=== PATIENT | male | born 1955 | race Asian ===

== ENCOUNTER → 2017-01-14 | Outpatient (CLI) | payer MEDICAID ==
[~2017-01-14] MED LIST: ASPI-515 PO; ASPI-621 PO; ATEN25TA PO; ATOR10TA9 PO; CENTRUM PO; CHOL10003 PO; GABA100C PO; GABA300C10 PO; GLIM2TAB2 PO; ISOS30TA8 PO; LOSA25TA5 PO; MAGN84TA6 PO; MELOXICAM PO; METF10002 PO; METH750T2 PO; OMEP-110 PO; TICA90TA PO; TRAM50TA2 PO
== END | disposition home or self-care (01) ==
LOC: RAD 14:27
PROVIDERS: ATTEND Otolaryngology
DX: Z02.9 Encounter for administrative examinations, unspecified (principal)

== ENCOUNTER → 2017-02-25 | Outpatient (CLI) | payer MEDICAID | END | disposition home or self-care (01) | LOC: RAD 14:21 | PROVIDERS: ATTEND Otolaryngology | DX: H90.3 Sensorineural hearing loss, bilateral (principal); R42 Dizziness and giddiness | CPT/HCPCS: 70551 ==

== ENCOUNTER → 2018-01-17 | Outpatient (CLI) | payer MEDICAID ==
[~2018-01-17] MED LIST changes: +OMNIPAQUE 350 MG/ML, 100ML BOTTLE ONE
== END ==
LOC: CFH 13:10
PROVIDERS: ATTEND Internal Medicine
DX: K40.90 Unilateral inguinal hernia, without obstruction or gangrene, not specified as recurrent (principal); K75.3 Granulomatous hepatitis, not elsewhere classified
CPT/HCPCS: 74177; 82565; Q9967

== ENCOUNTER → 2019-01-05 | Outpatient (CLI) | payer MEDICAID ==
[~2019-01-05] MED LIST changes: -ASPI-621 PO; +ASPI81TA45 PO; +LOSA25TA25 PO; -LOSA25TA5 PO; -OMNIPAQUE 350 MG/ML, 100ML BOTTLE ONE
== END | disposition home or self-care (01) ==
LOC: RAD 10:54
PROVIDERS: ATTEND Otolaryngology
DX: H90.3 Sensorineural hearing loss, bilateral (principal)
CPT/HCPCS: 70480

== ENCOUNTER → 2020-08-07 | Outpatient (CLI) | payer MEDICARE, MEDICAID ==
[~2020-08-07] MED LIST changes: -GLIM2TAB2 PO; +GLIM2TAB7 PO; +REGADENOSON 0.4 MG/5 ML SYRINGE ONE
[2020-08-07 09:52] LABS: ALBUMIN 4.1 g/dL (3.4-5.0); ANION GAP 8 mmol/L (5-15); CALCIUM 8.7 mg/dL (8.5-10.1); CHLORIDE 101 mmol/L (98-107)
[2020-08-07 09:56] LABS: ALANINE AMINOTRANSFERASE 44 U/L (12-78); ALKALINE PHOSPHATASE 102 U/L (45-117); BILIRUBIN,TOTAL 0.9 mg/dL (0.2-1.0); CHOL/HDL RATIO 3.6; CHOLESTEROL, TOTAL 121 mg/dL (140-239); CREATININE 0.79 mg/dL (0.7-1.3); HDL CHOL % 28 % (26-37); HDL CHOLESTEROL (DIRECT) 34 mg/dL (40-60); LDL CHOLESTEROL,CALCULATED 60 mg/dL (54-169); LDL/HDL RATIO 1.8 (0.5-3.0); TOTAL PROTEIN 7.4 g/dL (6.4-8.2); TRIGLYCERIDES 133 mg/dL (50-200); VLDL CHOLESTEROL 27 mg/dL (0-25)
== END | disposition home or self-care (01) ==
LOC: CFH 08:24
PROVIDERS: ATTEND Internal Medicine Cardiovascular Disease
DX: I25.9 Chronic ischemic heart disease, unspecified (principal); I25.10 Atherosclerotic heart disease of native coronary artery without angina pectoris; E78.2 Mixed hyperlipidemia; E87.1 Hypo-osmolality and hyponatremia; R07.9 Chest pain, unspecified; R06.02 Shortness of breath; R42 Dizziness and giddiness
CPT/HCPCS: 36415; 78452; 80053; 80061; 93017; A9502; J2785

== ENCOUNTER 2020-12-02 08:17 | Day surgery (SDC) | payer MEDICARE, MEDICAID ==
[~2020-12-02] VITALS: Ht 177.8 cm; Wt 90.0 kg
[~2020-12-02 08:17] MED LIST changes: -ASPI-515 PO; +ASPI-963 PO; +METH-640 PO; -METH750T2 PO; -REGADENOSON 0.4 MG/5 ML SYRINGE ONE
[2020-12-02] MEDS ORDERED: NITR0.4T28 SL (08:53)
[2020-12-02 09:11] VITALS: BP 144/83
[2020-12-02] MEDS ORDERED: MIDAZOLAM 1 MG/ML, 2ML ONE ×2 (09:17→10:06)
[2020-12-02] MEDS ORDERED: FENTANYL PF 100 MCG/2ML ONE (09:17)
[2020-12-02] MEDS ORDERED: LIDOCAINE-MPF 1%, 5ML ONE (09:18)
[2020-12-02] MEDS ORDERED: NITROGLYCERIN 5 MG/ML, 10ML ONE (09:18)
[2020-12-02] MEDS ORDERED: HEPARIN 1,000 UNITS/ML, 10ML ONE (09:18)
[2020-12-02] MEDS ORDERED: VERAPAMIL 2.5 MG/ML, 2ML ONE (09:18)
[2020-12-02] MEDS ORDERED: METO25TA91 PO (09:20)
[2020-12-02] MEDS ORDERED: PANT40TA6 PO (09:20)
[2020-12-02] MEDS ORDERED: MULT-717 PO (09:21)
[2020-12-02] MEDS ORDERED: BIVALIRUDIN 250 MG ONE (10:07)
[2020-12-02] MEDS ORDERED: SODIUM CHLORIDE 0.9% 1,000 ML IV SCH (11:00)
== END 2020-12-02 12:42 | disposition home or self-care (01) ==
LOC: CACL 08:17
PROVIDERS: ATTEND Internal Medicine Cardiovascular Disease
DX: R07.9 Chest pain, unspecified (principal); I25.110 Atherosclerotic heart disease of native coronary artery with unstable angina pectoris; I25.84 Coronary atherosclerosis due to calcified coronary lesion; I44.7 Left bundle-branch block, unspecified; I10 Essential (primary) hypertension; E78.2 Mixed hyperlipidemia; E11.40 Type 2 diabetes mellitus with diabetic neuropathy, unspecified; E87.1 Hypo-osmolality and hyponatremia; Z79.84 Long term (current) use of oral hypoglycemic drugs; Z79.899 Other long term (current) drug therapy; Z95.5 Presence of coronary angioplasty implant and graft
CPT/HCPCS: 93458; 93571; 99156; 99157; C1769; C1894; J1644; J2250; J3010; J0583